=== PATIENT | male | born 1955 | race American Indian/Alaskan Native ===

== ENCOUNTER 2018-04-04 10:56 | Day surgery (SDC) | payer OTHER ==
[2018-04-02 14:00] LABS: Basophils % (Auto) 0.5 % (0.0-1.8); Eosinophils % (Auto) 0.7 % (0.0-4.3); Hematocrit 40.6 % (35.5-45.6); Hemoglobin 13.5 gm/dl (11.8-15.2); Lymphocytes # (Auto) 2.4 K/mm3 (1.2-5.4); Lymphocytes % (Auto) 45.6 % (13.4-35.0); Mean Corpuscular HGB Conc 33 % (32-34); Mean Corpuscular Volume 88 fl (84-94); Monocytes # (Auto) 0.4 K/mm3 (0.0-0.8); Monocytes % (Auto) 7.5 % (0.0-7.3); Platelet Count 230 K/mm3 (140-440); Red Blood Count 4.64 M/mm3 (3.65-5.03); Red Cell Distribution Width 14.6 % (13.2-15.2)
[2018-04-02 14:15] LABS: Alanine Aminotransferase 45 units/L (7-56); Albumin 4.6 g/dL (3.9-5); BUN/Creatinine Ratio 12; Blood Urea Nitrogen 12 mg/dL (9-20); Calcium 9.2 mg/dL (8.4-10.2); Hemolysis Index 17
[2018-04-02 14:16] LABS: INR 1.06 (0.87-1.13); Partial Thromboplastin Time 29.2 Sec. (24.2-36.6)
--- NOTE | 2018-04-02 16:47 | Anesthesia Consultation ---
Anesthesia Consult and Med Hx Date of service: 04/02/18 - Airway Anesthetic Teeth Evaluation: Good ROM Head & Neck: Adequate Mental/Hyoid Distance: Adequate Mallampati Class: Class III Intubation Access Assessment: Possibly Difficult - Pulmonary Exam CTA: Yes - Cardiac Exam Cardiac Exam: RRR - Pre-Operative Health Status ASA Pre-Surgery Classification: ASA2 Proposed Anesthetic Plan: General - Pulmonary Hx Smoking: Yes (15pk yr hx; quit 2yrs ago) Hx Asthma: No Hx Respiratory Symptoms: No Hx Sleep Apnea: No (MAURA PRE SCREEN HIGH RISK) - Cardiovascular System Hx Hypertension: Yes Hx Heart Attack/AMI: No Hx Percutaneous Transluminal Coronary Angioplasty (PTCA): No - Central Nervous System Hx Seizures: No CVA: No - Gastrointestinal Hx Gastroesophageal Reflux Disease: No - Endocrine Hx Renal Disease: No Hx Liver Disease: No Hx Non-Insulin Dependent Diabetes: Yes Hx Thyroid Disease: No - Other Systems Hx Substance Use: Yes (occasional marijuana use) Hx Obesity: No - Additional Comments Anesthesia Medical History Comments: No hx anesthetic complications. Instructed to hold lisinopril day before surgery (takes in PM).
[~2018-04-04 10:56] MED LIST: NACL 0.9% 1000 ML 1,000 ML IV SCH; VERSED IV NR
[2018-04-04] MEDS ORDERED: SUBLIMAZE ONE ×3 (11:55→13:50)
[2018-04-04] MEDS ORDERED: XYLOCAINE MPF 2% ONE (11:55)
[2018-04-04] MEDS ORDERED: DIPRIVAN 10 MG/ML IV ONE (11:56)
--- NOTE | 2018-04-04 11:57 | Anesthesia Day of Surgery ---
Anesthesia Day of Surgery - Day of Surgery Patient Examined: Yes Patient H&P Reviewed: Yes Patient is NPO: Yes
[2018-04-04] MEDS ORDERED: DILAUDID IV PRN (11:58)
[2018-04-04] MEDS ORDERED: ANCEF/STERILE WATER 2 GM/20 ML IV NR (12:00)
[2018-04-04] MEDS ORDERED: VERSED IV NR (12:00)
[2018-04-04] MEDS ORDERED: ZOFRAN ONE (12:35)
[2018-04-04] MEDS ORDERED: SORBITOL-MANNITOL IRRIG IR ONE (13:05)
[2018-04-04] MEDS ORDERED: LASIX ONE (13:59)
--- NOTE | 2018-04-04 14:22 | Post Operative Note ---
Date of procedure: 04/04/18 Pre-op diagnosis: bladder stones huge gland Post-op diagnosis: same Findings: as above Procedure: cysto cystolithotripsy Anesthesia: GETA Surgeon: MONICA CHURCH Estimated blood loss: minimal Pathology: list (stones) Specimen disposition: to lab Condition: stable Disposition: PACU
--- NOTE | 2018-04-04 14:23 | Discharge Summary ---
Short Stay Discharge Plan Activity: other (inc fluids ) Weight Bearing Status: Full Weight Bearing Diet: low fat, low cholesterol, low salt Special Instructions: other Durable Medical Equipment Needed Upon Discharge: other (downs ) Follow up with: HANH CHACON NP [Primary Care Provider] - 7 Days MONICA CHURCH MD [Staff Physician] - 7 Days
--- NOTE | 2018-04-04 14:30 | Post Anesthesia Evaluation ---
- Post Anesthesia Evaluation Patient Participated: Yes Airway Patent: Yes Stable Respiratory Function: Yes Nausea/Vomiting: No Temp > 96.8F: Yes Pain Manageable: Yes Adequeate Hydration: Yes Anesthesia Complications: No
--- NOTE | 2018-04-04 15:18 | Operative Report ---
PREOPERATIVE DIAGNOSIS: Very large prostate, huge number of bladder stones. POSTOPERATIVE DIAGNOSIS: Very large prostate, huge number of bladder stones. PROCEDURE: Cystoscopy and cystolithotripsy. SURGEON: Chet Dempsey MD ANESTHESIA: General. FINDINGS: This is a gentleman with large number of bladder stones. He refused the procedure earlier in the last year and now presents for treatment. His prostate is very large. He has had previous biopsies which were benign. DESCRIPTION OF PROCEDURE: The patient was brought to the operating room and placed on the operating table. Following induction of anesthesia, he was placed in lithotomy position, and prepped and draped in usual sterile fashion. Cystourethroscopy showed a very large prostate with a very large elevated bladder neck and median bar and median lobe. We got into the bladder. Pictures were taken of large number of stones. We were able to place the nephroscope in the bladder and using the Olympus ultrasound and LithoClast, we got just about all the stones and we made them into smaller pieces. We then were considering maybe just incising the prostate, but the resectoscope was not long enough to get into the bladder. We therefore spoke to the family, he may need an open prostate or at least an embolization of a lobe or two of the prostate. The patient tolerated the procedure well. We left a 26 three-way which was clear. Static cystogram was done and showed no extravasation. The plan might be followup open prostatectomy for about a 200 gram prostate and removal of any small amount of stones that are left. He was brought to recovery room in stable condition. JOB# [id number] RAMILA/DAE
[2018-04-04 18:30] VITALS: BP 144/84
--- NOTE | 2018-04-05 08:09 | Fluoroscopy Report ---
FLUOROSCOPY CYSTOGRAM STATIC History: Bladder stones, urinary retention. Findings: Fluoroscopy was provided by radiology during cystogram by urology. 5 fluoroscopic images were captured during this exam. The images demonstrate several filling defects within the bladder consistent with bladder stones. Per the operative notes, shock pulse was utilized to blast and remove as many stones as possible. The bladder is within normal limits otherwise. No obvious mass or extravasation. Please correlate with the procedural report as needed. Impression: Multiple bladder stones.
== END 2018-04-04 18:10 | disposition home or self-care (01) ==
LOC: EDBD 10:56 → OR 10:56
PROVIDERS: ATTEND Urology
DX: N21.0 Calculus in bladder (principal); I10 Essential (primary) hypertension; E11.9 Type 2 diabetes mellitus without complications; M19.90 Unspecified osteoarthritis, unspecified site; Z79.899 Other long term (current) drug therapy; Z79.84 Long term (current) use of oral hypoglycemic drugs; Z98.52 Vasectomy status; Z87.891 Personal history of nicotine dependence; Z98.890 Other specified postprocedural states; Z79.01 Long term (current) use of anticoagulants
CPT/HCPCS: 36415; 52317; 74430; 80053; 82962; 85025; 85610; 85730; 86850; 86900; 86901; J0690; J1170; J1940; J2405; J2704; J3010; J7030; Q9967